=== PATIENT | female | born 1940 | race Caucasian/White ===

== ENCOUNTER 2016-05-11 13:12 | Emergency (ER) | payer OTHER ==
[~2016-05-11] VITALS: Ht 160 cm; Wt 67.0 kg
[2016-05-11 14:06] LABS: HEMATOCRIT 41.4 % (36.0-46.0); MCH 30.2 PG (29.0-34.0); MCHC 33.1 G/DL (30.0-36.0); MCV 91.2 FL (83-99); PLATELET COUNT 283 K/uL (156-360); RBC DIS.WIDTH-CV 13.9 % (11.8-14.6); RBC DIS.WIDTH-SD 45.2 % (39-53); RED BLOOD COUNT 4.54 M/uL (3.80-5.20); WHITE BLOOD COUNT 8.2 K/uL (4.1-10.2)
[2016-05-11 14:15] LABS: CHLORIDE 108 mEq/L (99-109); POTASSIUM 3.8 mEq/L (3.7-5.4); SODIUM 141 mEq/L (136-147)
[2016-05-11 14:16] LABS: GLUCOSE 105 mg/dL (70-99)
[2016-05-11 14:18] LABS: ANION GAP 8 MEQ/L (2-14)
[2016-05-11 14:20] LABS: GFR ESTIMATE (CALCULATED) 58 mL/min/
[2016-05-11 14:21] LABS: UREA NITROGEN (BUN) 23 mg/dL (9-23)
[2016-05-11] MEDS ORDERED: DULOXETINE HCL60 MG PO (16:25)
[2016-05-11 17:28] LABS: TOTAL BILIRUBIN 0.4 mg/dL (0.0-1.0)
[2016-05-11 17:29] LABS: ALKALINE PHOSPHATASE 47 IU/L (3-129)
[2016-05-11 17:31] LABS: DIRECT BILIRUBIN 0.2 mg/dL (0.0-0.3)
[2016-05-11 17:39] LABS: TROP-I INTERPRETATION NEGATIVE; TROPONIN-I < 0.01 ng/mL (0.0-0.30)
[2016-05-11] MEDS ORDERED: LISINOPRIL10 MG PO (19:55)
[2016-05-11] MEDS ORDERED: TOPROL XL25 MG PO (19:55)
[2016-05-11] MEDS ORDERED: ATIVAN0.5 MG PO (19:56)
[2016-05-11 20:11] LABS: ADD MIUA? YES; BILIRUBIN NEGATIVE; BLOOD NEGATIVE; COLOR YELLOW ((YELLOW)); GLUCOSE (STRIP) NEGATIVE; KETONES 15; LEUKOCYTES MODERATE; NITRITE POSITIVE; PH, URINE 6.5 (5-8); PROTEIN (STRIP) NEGATIVE; SPECIFIC GRAVITY 1.022 (1.000-1.030); UROBILINOGEN 0.2 MG/DL (0.2-1.0)
[2016-05-11] MEDS ORDERED: KEFLEX500 MG PO (20:19)
[2016-05-11 20:44] LABS: BACTERIA 4+ /HPF; CASTS NONE SEEN /LPF; CRYSTALS NONE SEEN; EPITHELIAL CELLS 1+ /HPF; MUCUS NONE SEEN /LPF; PATHOLOGICAL CAST NONE SEEN; RED BLOOD CELLS 0-5 /HPF (0-5); SMALL ROUND CELL NONE SEEN; UCUL ADDED? YES; YEAST-LIKE CELL NONE SEEN
[2016-05-11 20:45] VITALS: BP 189/89
== END 2016-05-11 20:53 | disposition home or self-care (01) ==
LOC: EME 13:12
PROVIDERS: Emergency Medicine
DX: I10 Essential (primary) hypertension (principal); F41.9 Anxiety disorder, unspecified; N39.0 Urinary tract infection, site not specified; Z91.81 History of falling; K21.9 Gastro-esophageal reflux disease without esophagitis; Z85.43 Personal history of malignant neoplasm of ovary; Z85.3 Personal history of malignant neoplasm of breast
CPT/HCPCS: 70450; 71020; 80048; 80076; 81003; 84484; 85027; 87077; 87086; 87186; 93005; 99281; 99285; J0360

== ENCOUNTER 2016-12-11 20:00 | Emergency (ER) | payer OTHER ==
[~2016-12-11] VITALS: Ht 157.5 cm; Wt 68.0 kg
[~2016-12-11 20:00] MED LIST: ATIVAN0.5 MG PO; DULOXETINE HCL60 MG PO; KEFLEX500 MG PO; LISINOPRIL10 MG PO; TOPROL XL25 MG PO
[2016-12-11 20:55] LABS: HEMATOCRIT 38.9 % (36.0-46.0); MCH 30.8 PG (29.0-34.0); MCHC 32.9 G/DL (30.0-36.0); MCV 93.7 FL (83-99); MEAN PLAT.VOLUME 9.1 uM^3 (9.5-12.4); PLATELET COUNT 250 K/uL (156-360); RBC DIS.WIDTH-CV 13.8 % (11.8-14.6); RBC DIS.WIDTH-SD 47.3 % (39-53); RED BLOOD COUNT 4.15 M/uL (3.80-5.20); WHITE BLOOD COUNT 9.6 K/uL (4.1-10.2)
[2016-12-11 21:04] LABS: CHLORIDE 102 mEq/L (99-109); POTASSIUM 3.3 mEq/L (3.7-5.4); SODIUM 136 mEq/L (136-147)
[2016-12-11 21:06] LABS: GLUCOSE 103 mg/dL (70-99)
[2016-12-11 21:07] LABS: ANION GAP 10 MEQ/L (2-14)
[2016-12-11 21:08] LABS: TOTAL BILIRUBIN 0.3 mg/dL (0.0-1.0)
[2016-12-11 21:09] LABS: SERUM ETHYL ALCOHOL 269 mg/dL
[2016-12-11 21:10] LABS: ALKALINE PHOSPHATASE 40 IU/L (3-129); GFR ESTIMATE (CALCULATED) > 59 mL/min/
[2016-12-11 21:11] LABS: UREA NITROGEN (BUN) 23 mg/dL (9-23)
[2016-12-11 21:14] LABS: TROP-I INTERPRETATION NEGATIVE; TROPONIN-I < 0.01 ng/mL (0.0-0.30)
[2016-12-11 21:19] LABS: PROTHROMBIN TIME 10.4 SEC (10.2-12.9); PTT 26.9 SEC (25-37)
[2016-12-12 02:25] VITALS: BP 109/73
== END 2016-12-12 02:26 | disposition home or self-care (01) ==
LOC: EME 20:00
PROVIDERS: Emergency Medicine
DX: S01.81XA Laceration without foreign body of other part of head, initial encounter (principal); F10.129 Alcohol abuse with intoxication, unspecified; Y90.8 Blood alcohol level of 240 mg/100 ml or more; Z23 Encounter for immunization; W19.XXXA Unspecified fall, initial encounter; Y92.009 Unspecified place in unspecified non-institutional (private) residence as the place of occurrence of the external cause; I10 Essential (primary) hypertension; Z85.43 Personal history of malignant neoplasm of ovary; Z85.3 Personal history of malignant neoplasm of breast; Z90.10 Acquired absence of unspecified breast and nipple
CPT/HCPCS: 70450; 72125; 80053; 84484; 85027; 85610; 85730; 93005; 99281; 99285; G0480; J1630; J2060; J7030